=== PATIENT | male | born 1985 | race Caucasian/White ===

== ENCOUNTER 2023-03-02 08:55 | Emergency (ER) | payer BC, SELFPAY ==
[2023-03-02 09:02] VITALS: BP 187/128; PULSE 87; RESP 20; TEMP 36.7; O2SAT 99
--- NOTE | 2023-03-02 09:28 | ED.UPPEXIN ---
HPI - Extremity Injury (Upper) General Chief Complaint: Extremity Injury, Upper Stated Complaint: Right Arm Injury Source: patient and RN notes reviewed History of Present Illness HPI narrative: 37-year-old male presents to urgent care with complaints right arm pain. Patient states on Thursday he was lifting a trailer we felt a pop in his right upper arm. Patient presents with bruising to his right upper and lower forearm. Patient states his biceps muscle does not look the same and is unable to flex his biceps muscle. Patient has been icing the area with minimal relief. Denies any numbness or tingling to the extremity. Patient is also noted to have high blood pressure and urgent care. Patient states he was on amlodipine and losartan and quit taking it approximately 1 year ago because of blood pressure was under control. Patient reports mild headaches and intermittent dizziness. Patient also reported intermittent blurry vision. Denies any chest pain or shortness of breath. Related Data Home Medications Medication Instructions Recorded Confirmed dextroamphetamine-amphetamine ER 15 mg PO DAILY 03/02/23 03/02/23 15 mg 24hr capsule,extend release Allergies Allergy/AdvReac Type Severity Reaction Status Date / Time No Known Allergies Allergy Verified 03/02/23 09:12 Review of Systems Review of Systems: CONSTITUTIONAL: Denies fever, chills, or sweats. EYES: Denies visual changes, redness, or discharge. ENT: Denies otalgia and sore throat CARDIOVASCULAR: Denies chest pain, palpitations, or edema. RESPIRATORY: Denies cough or dyspnea. GASTROINTESTINAL: Denies abdominal pain, nausea, vomiting, or diarrhea. GENITOURINARY: Denies dysuria or hematuria. SKIN: Denies rash or itching. MUSCULOSKELETAL: Right arm pain, weakness, bruising, and swelling NEUROLOGIC: Reports mild headache. Pertinent positives per HPI. PMFSH Social History Social History Smoking status: Never smoker Alcohol intake: current Comments At the time of my signature, I reviewed and agree with the nursing past medical, surgical, social, and family history. There is no relevant family history pertinent to the patient complaint. Exam Narrative: GENERAL: This is a well-nourished, well-developed patient, in no apparent distress. HEAD: normocephalic, atraumatic. EYES: Sclera clear/white. Vision is grossly intact. EARS: External ears normal, auditory canals clear and without drainage. Hearing grossly intact. NOSE: External nose normal with no obvious nasal discharge, nares without redness, no rhinorrhea. THROAT: Mucous membranes moist, posterior pharynx clear. NECK: Neck supple, non-tender without lymphadenopathy, masses or thyromegaly. CARDIOVASCULAR: Regular rate and rhythm without murmurs, gallops, or rubs. RESPIRATORY: Clear to auscultation. Breath sounds equal bilaterally. No wheezes, rales, or rhonchi. GASTROINTESTINAL: Abdomen soft, non-tender, nondistended. Bowel sounds are active. No hepato-splenomegaly, or palpable masses. No guarding. SKIN: ecchymosis to right lower, medial FA and upper arm NEURO: awake, alert, and oriented to person, place and time. There were no obvious focal neurologic abnormalities. EXTREMITIES:Limited ROM with right arm due to pain in upper arm. No pronounced bicep muscle appreciated. BACK: Nontender without deformity or crepitance. No flank tenderness. Course Course Level of Care: Express Care Visit Vital Signs Vital signs: Vital Signs Temperature 98.1 F 03/02/23 09:02 Pulse Rate 87 03/02/23 09:02 Respiratory Rate 20 03/02/23 09:02 Pulse Oximetry 99 03/02/23 09:02 Oxygen Delivery Room Air 03/02/23 09:02 Temperature 98.1 F 03/02/23 09:02 Pulse Rate 87 03/02/23 09:02 Respiratory Rate 20 03/02/23 09:02 Pulse Oximetry 99 03/02/23 09:02 Oxygen Delivery Room Air 03/02/23 09:02 Reviewed MDM - Extremity Injury (Upper) MDM Narrative Medical decision making narrative: Plan
[2023-03-02 09:35] VITALS: BP 220/124
[2023-03-02 09:40] VITALS: BP 186/118
== END 2023-03-02 09:40 | disposition short-term general hospital (02) ==
PROVIDERS: Emergency Provider Nurse Practitioner Family
DX: S46.211A Strain of muscle, fascia and tendon of other parts of biceps, right arm, initial encounter (principal); X50.0XXA Overexertion from strenuous movement or load, initial encounter; I16.9 Hypertensive crisis, unspecified; I10 Essential (primary) hypertension
CPT/HCPCS: 99212; G0463

== ENCOUNTER 2023-03-02 10:14 | Emergency (ER) | payer BC, SELFPAY ==
[2023-03-02 10:39] VITALS: BP 197/117; PULSE 71; RESP 20; TEMP 36.6; O2SAT 100
--- NOTE | 2023-03-02 11:28 | ECG_ITS ---
Measurements Intervals [place] Rate: 63 P: 31 ME: 135 QRS: -17 QRSD: 120 T: -34 QT: 372 QTc: 383 Interpretive Statements SINUS RHYTHM LEFT VENTRICULAR HYPERTROPHY AND ST-T CHANGE [VOLTAGE CRITERIA PLUS ST/T ABNORMALITY] INFERIOR T-WAVE INVERSION, CONSIDER ISCHEMIA ABNORMAL ECG Electronically Signed On 03-02-2023 11:59:41 CDT by Rico Cat M.D.
[2023-03-02 12:09] LABS: Appearance Urine Clear (Clear); Bacteria Urine None Seen /hpf; Bilirubin Urine Negative (Negative); Blood Urine Negative (Negative); Color Urine Yellow (Yellow); Glucose Urine UA Negative (Negative); Ketones Urine Negative (Negative); Leukocyte Esterase Ur Trace LEU/UL (Negative); Nitrate Urine Negative (Negative); Non Pathogenic Casts 0-2; Protein Urine 1+ mg/dL (Negative); RBC Urine 0-2 /hpf (0-2); Specific Grav Ur 1.022 (1.001-1.035); Squamous Epithelial Cell Urine None seen /hpf (Few); WBC Urine 0-5 /hpf; pH Urine 7.5 (5.0-9.0)
[2023-03-02 12:15] LABS: Add Urine Microscopic? YES
[2023-03-02 12:19] VITALS: BP 167/101; PULSE 80; RESP 16; O2SAT 98
[2023-03-02 12:21] LABS: Basophils Absolute Auto 0.1 K/mm3 (0.0-0.1); Basophils Percent Auto 0.6 % (0.2-1.2); Eosinophils Percent Auto 0.2 % (0-4.4); Hematocrit 50.5 % (42.0-52.0); Hemoglobin 16.6 g/dL (14.0-18.0); Immature Granulocyte Absolute 0.02 K/mm3 (0.00-0.031); Immature Granulocyte Percent A 0.2 % (0-0.5); Lymphocytes Absolute Auto 2.22 K/mm3 (0.9-3.2); Lymphocytes Percent Auto 22.7 % (18.3-44.2); Mean Corpuscular HGB Conc 32.9 g/dl (32-36); Mean Corpuscular Hemoglobin 30.7 pg (26-34); Mean Corpuscular Volume 93.3 fl (80-100); Mean Platelet Volume 10.8 fl (7.4-10.4); Monocytes Percent Auto 9.8 % (2.6-8.5); Neutrophils Absolute Auto 6.5 K/mm3 (1.3-6.7); Neutrophils Percent Auto 66.5 % (45.5-73.1); Platelet Count Result 243 k/mm3 (150-375); Red Blood Count 5.41 M/mm3 (4.6-6.20); Red Cell Distribution Width 16.2 % (11.5-14.5); White Blood Count 9.8 K/mm3 (4.5-10.0)
[2023-03-02 12:31] LABS: Alanine Aminotransferase 93 U/L (6-50); Albumin Level 3.9 g/dL (3.5-5.1); Alkaline Phosphatase 66 U/L (38-126); Anion Gap 11 mmol/L (8-16); Aspartate Amino Transferase 124 U/L (17-59); Bilirubin,Total 1.2 mg/dL (0.2-1.3); Blood Urea Nitrogen 10 mg/dL (9-20); Carbon Dioxide 21 mmol/L (22-30); Chloride 102 mmol/L (98-107); Estimated CRCL calculation 105 ml/min; Estimated Glomerular Filt Rate > 60; Glucose 102 mg/dL (65-110); Potassium 4.4 mmol/L (3.4-5.0); Sodium 134 mmol/L (137-145)
--- NOTE | 2023-03-02 12:56 | ED.GENADULT ---
HPI - General Adult General Chief complaint: Recheck/Abnormal Lab/Rx Stated complaint: high bp Time Seen by Provider: 03/02/23 11:28 History of Present Illness HPI narrative: Patient is a 37-year-old male who presents ER with 2 complaints. First complaint is ruptured biceps tendon. Was seen at urgent care and referred here due to elevated blood pressures. He reports he was trying to lift a trailer 2 days ago when he felt pain and pop. He has bruising over his medial elbow. He still maintains some flexion of the right upper extremity at the elbow. No numbness or tingling. Secondly he is found to have significant LV elevated blood pressures. He has history of hypertension. No chest pain or shortness of breath. No headache or change in vision. Patient reports anxiety about being in the hospital which may be elevating his blood pressure. Related Data Home Medications Medication Instructions Recorded Confirmed dextroamphetamine-amphetamine ER 15 mg PO DAILY 03/02/23 03/02/23 15 mg 24hr capsule,extend release Allergies Allergy/AdvReac Type Severity Reaction Status Date / Time No Known Allergies Allergy Verified 03/02/23 10:41 Review of Systems Review of Systems: All systems reviewed & are unremarkable except as noted in HPI and below Eyes: Eyes: Denies change in vision Cardiovascular: Cardiovascular: Denies chest pain, Denies rapid heart rate and Denies radiating jaw, neck or arm pain Respiratory: Respiratory: Denies cough and Denies dyspnea Gastrointestinal: Gastrointestinal: Denies abdominal pain, Denies nausea and Denies vomiting Musculoskeletal: Musculoskeletal: Reports arthralgias and Reports joint swelling PMFSH Past Medical History Medical History (Updated 03/02/23 @ 20:08 by Giovanni Merrill MD) Hypertension Surgical History Surgical History (Updated 03/02/23 @ 20:08 by Giovanni Merrill MD) No pertinent past surgical history Social History Social History Smoking status: Never smoker Alcohol intake: current Exam Narrative: GENERAL: Well-appearing, well-nourished, and in no acute distress. HEAD: Normocephalic, atraumatic. ENT: Mucous membranes moist. CHEST: Clear to auscultation. No respiratory distress. HEART: Regular rate and rhythm. Normal peripheral pulses. EXTREMITIES: Normal range of motion. No edema. Right antecubital fossa lacks the palpable cord of the biceps tendon when compared to the left side. There is certainly swelling and some bruising to the medial aspect of the right elbow as well. SKIN: Warm, dry, no rash. NEURO: Alert and oriented x3. PSYCH: Normal mood and affect. Course Course Emergency Course: Been contacted and patient will follow-up. Patient had 2 abruptly leave the ER after labs have returned. Patient was discharged and it was recommended that he follow-up with his PCP for management of his hypertension as well. Vital Signs Vital signs: Vital Signs Temperature 97.8 F 03/02/23 10:39 Pulse Rate 71 03/02/23 10:39 Respiratory Rate 20 03/02/23 10:39 Blood Pressure 197/117 H 03/02/23 10:39 Pulse Oximetry 100 03/02/23 10:39 Oxygen Delivery Room Air 03/02/23 10:39 Temperature 97.8 F 03/02/23 10:39 Pulse Rate 78 03/02/23 13:09 Respiratory Rate 16 03/02/23 13:09 Blood Pressure 159/82 H 03/02/23 13:09 Pulse Oximetry 100 03/02/23 13:09 Oxygen Delivery Room Air 03/02/23 10:39 Medical Decision Making Vital Signs Vital Signs: Vital Signs Temperature 97.8 F 03/02/23 10:39 Pulse Rate 71 03/02/23 10:39 Respiratory Rate 20 03/02/23 10:39 Blood Pressure 197/117 H 03/02/23 10:39 Pulse Oximetry 100 03/02/23 10:39 Oxygen Delivery Room Air 03/02/23 10:39 Temperature 97.8 F 03/02/23 10:39 Pulse Rate 78 03/02/23 13:09 Respiratory Rate 16 03/02/23 13:09 Blood Pressure 159/82 H 03/02/23 13:09 Pulse Oximetry 100 03/02/23 13:09 Oxygen Delivery Room Air 03/02/23 10:39
[2023-03-02 13:09] VITALS: BP 159/82; PULSE 78; RESP 16; O2SAT 100
== END 2023-03-02 13:12 | disposition home or self-care (01) ==
PROVIDERS: Emergency Provider Emergency Medicine
DX: S46.211A Strain of muscle, fascia and tendon of other parts of biceps, right arm, initial encounter (principal); I10 Essential (primary) hypertension; X50.0XXA Overexertion from strenuous movement or load, initial encounter
CPT/HCPCS: 36415; 80053; 81001; 85025; 93005; 99283